=== PATIENT | female | born 1995 | race Hispanic/Latino ===

== ENCOUNTER 2022-08-09 07:24 | Day surgery (SDC) | payer OTHER ==
[2022-08-09] MEDS ORDERED: hydrALAZINE 20 MG/ML VIAL SLOW IVP PRN (08:54)
== END 2022-08-09 09:13 | disposition home or self-care (01) ==
LOC: CSHLD/OP 07:24
PROVIDERS: ATTEND Advanced Practice Midwife
DX: O47.1 False labor at or after 37 completed weeks of gestation (principal); Z3A.38 38 weeks gestation of pregnancy; Z79.899 Other long term (current) drug therapy
CPT/HCPCS: 59025; 99282

== ENCOUNTER 2022-08-17 00:21 | Inpatient (IN) | payer MEDICAID, OTHER, SELFPAY ==
[2022-08-17 00:43] VITALS: BMI 24.5
[2022-08-17 01:57] LABS: Fetal Membranes Rupture No Membranes Rupture (No Rupture)
[2022-08-17] MEDS ORDERED: hydrALAZINE 20 MG/ML VIAL SLOW IVP PRN ×3 (03:22→23:21)
[2022-08-17] MEDS ORDERED: Carboprost 250 MCG/ML AMP IM PRN (04:57)
[2022-08-17] MEDS ORDERED: Acetaminophen 500 MG TAB PO PRN (04:57)
[2022-08-17] MEDS ORDERED: Promethazine HCl 25 MG/ML VIAL IM PRN ×2 (04:57→14:58)
[2022-08-17] MEDS ORDERED: Butorphanol Tartrate 1 MG/ML VIAL SLOW IVP PRN (04:57)
[2022-08-17] MEDS ORDERED: Diphenoxylate HCl/Atropine Tablet PO PRN (04:57)
[2022-08-17] MEDS ORDERED: Methylergonovine 0.2 MG/ML VIAL IM PRN ×2 (04:57→23:21)
[2022-08-17] MEDS ORDERED: Lidocaine 1% (PF) 30 ML VIAL SC PRN (04:57)
[2022-08-17] MEDS ORDERED: HYDROcodone/Acetaminophen 5/325 mg Tablet PO PRN ×2 (04:57)
[2022-08-17] MEDS ORDERED: Misoprostol 200 MCG TAB PR PRN (04:57)
[2022-08-17] MEDS ORDERED: Ondansetron PF 4 MG/2 ML Vial IVP PRN ×2 (04:57→14:58)
[2022-08-17] MEDS ORDERED: Lactated Ringer's 1,000 ML IV SCH (05:00)
[2022-08-17] MEDS ORDERED: NS w/ Oxytocin 30 units 500 ML IV SCH ×3 (05:00→23:21)
[2022-08-17 05:23] LABS: Hemoglobin 13.9 g/dL (12.0-15.5); Mean Corpuscular HGB CONC 35.6 g/dL (32.0-36.0); Mean Corpuscular Hemoglobin 32.9 pg (27.0-33.0); Mean Corpuscular Volume 92.4 fl (81.6-98.3); Mean Platelet Volume 10.5 fl (7.4-10.4); Platelet Count 281 10x3/uL (150-450); RBC Distribution Width 14.5 % (11.5-14.5); Red Blood Cell (RBC) Count 4.22 10x6/uL (3.90-5.03); White Blood Cell (WBC) Count 12.1 10x3/uL (3.5-10.5)
[2022-08-17 05:52] LABS: HBSAg Index 0.28 S/CO (0-0.99); Hep B Surf Ag Non-Reactive S/CO (NonReactive); Syphilis Antibody Nonreactive (Nonreactive); Syphilis Antibody Index 0.05 S/CO (<1.00 Non-Reactive)
[2022-08-17 05:52] LABS: SARS-CoV-2 NAA Rapid Test Not Detected (NotDetected)
[2022-08-17] MEDS: Misoprostol 100 MCG TAB VAG SCH (07:41)
[2022-08-17] MEDS ORDERED: Bupivacaine 0.25% HCL 30 ML VIAL ONE (08:00)
[2022-08-17] MEDS ORDERED: Fentanyl 2 mcg/Bup 0.1% Cadd 100 ML ONE (13:22)
[2022-08-17] MEDS ORDERED: Moisturizing Cream (Eucerin) 113 GM JAR TOP PRN (14:58)
[2022-08-17] MEDS ORDERED: diphenhydrAMINE 50 MG/ML VIAL IVP PRN (14:58)
[2022-08-17] MEDS ORDERED: ePHEDrine Sulfate 50 MG/10 ML VIAL SLOW IVP PRN (14:58)
[2022-08-17] MEDS ORDERED: Lactated Ringer's 500 ML IV PRN (14:58)
[2022-08-17] MEDS ORDERED: Naloxone HCl 0.4 mg/ml Vial IVP PRN ×2 (14:58)
[2022-08-17] MEDS ORDERED: Communication Order-Pharmacy FS SCH (15:00)
[2022-08-17] MEDS ORDERED: Fentanyl 2 mcg/Bupivacaine 0.1% Cassette 100 ML EPIDURAL SCH (15:00)
[2022-08-17] MEDS ORDERED: Misoprostol 200 MCG TAB VAG PRN (23:21)
[2022-08-17] MEDS ORDERED: Milk Of Magnesia 30 ML UDCUP PO PRN (23:21)
[2022-08-17] MEDS ORDERED: Preparation H Ointment 28 GM TUBE PR PRN (23:21)
[2022-08-17] MEDS ORDERED: Lanolin Ointment 7 GM TUBE TOP PRN (23:21)
[2022-08-17] MEDS ORDERED: Bisacodyl 10 MG SUPP PR PRN (23:21)
[2022-08-17] MEDS ORDERED: Benzocaine-Menthol 82.5 ML CAN TOP PRN (23:21)
[2022-08-17] MEDS: Acetaminophen 325 MG TAB PO PRN (23:54)
[2022-08-18] MEDS: Acetaminophen 325 MG TAB PO PRN ×2 (04:10→09:26)
[2022-08-18] MEDS: Misoprostol 100 MCG TAB VAG SCH ×2 (06:01→06:02)
[2022-08-18] MEDS: Ferrous Sulfate 325 MG TAB PO SCH ×2 (07:43→16:39)
[2022-08-18] MEDS: Prenatal Vitamin 1 TAB PO SCH (09:23)
[2022-08-18] MEDS: Docusate 100 MG CAP PO SCH ×2 (09:23→20:21)
[2022-08-18] MEDS: HYDROcodone/Acetaminophen 5/325 mg Tablet PO PRN ×2 (13:57→20:22)
[2022-08-18] MEDS ORDERED: HYDROcodone/Acetaminophen 5/325 mg Tablet PO PRN (15:00)
[2022-08-19] MEDS: HYDROcodone/Acetaminophen 5/325 mg Tablet PO PRN (06:01)
[2022-08-19 08:24] VITALS: BP 117/73; TEMP 98.3
[2022-08-19] MEDS: Ferrous Sulfate 325 MG TAB PO SCH (08:50)
[2022-08-19] MEDS: Docusate 100 MG CAP PO SCH (08:50)
[2022-08-19] MEDS: Prenatal Vitamin 1 TAB PO SCH (08:50)
== END 2022-08-19 14:05 | disposition home or self-care (01) | DRG 768 ==
LOC: CSHLD/OP 00:21 → CSHLD 04:46 → CSHPED 22:50
PROVIDERS: ADMIT Obstetrics & Gynecology; ATTEND Obstetrics & Gynecology
PROC: 10E0XZZ Delivery of Products of Conception, External Approach (ICD-10-PCS; principal; 2022-08-17)
PROC: 0DQR0ZZ Repair Anal Sphincter, Open Approach (ICD-10-PCS; 2022-08-17)
PROC: 10907ZC Drainage of Amniotic Fluid, Therapeutic from Products of Conception, Via Natural or Artificial Opening (ICD-10-PCS; 2022-08-17)
PROC: 3E033VJ Introduction of Other Hormone into Peripheral Vein, Percutaneous Approach (ICD-10-PCS; 2022-08-17)
DX: O76 Abnormality in fetal heart rate and rhythm complicating labor and delivery (principal); Z37.0 Single live birth; O70.20 Third degree perineal laceration during delivery, unspecified; Z3A.39 39 weeks gestation of pregnancy; Z20.822 Contact with and (suspected) exposure to COVID-19; Z88.0 Allergy status to penicillin; Z88.6 Allergy status to analgesic agent; O69.81X0 Labor and delivery complicated by cord around neck, without compression, not applicable or unspecified
CPT/HCPCS: 36415; 51702; 76819; 84112; 85027; 86780; 86850; 86900; 86901; 87340; 99285; J2590; S0020; U0002